=== PATIENT | female | born 1975 | race Caucasian/White ===

== ENCOUNTER 2022-04-28 12:31 | Emergency (ER) | payer OTHER ==
[2022-04-28] MEDS ORDERED: HYDROCODONE/APAP 5/325 MG TAB ONE (13:52)
[2022-04-28] MEDS ORDERED: IBUPROFEN 400 MG TAB ONE (13:52)
[2022-04-28 14:35] LABS: Urine Blood Negative (Negative); Urine Glucose Negative (Negative); Urine Protein Negative (Negative); Urine Specific Gravity 1.025 (1.005-1.030)
[2022-04-28 14:56] LABS: Absolute Lymphocytes (CBC) 4.1 K/uL (0.7-4.9); Hematocrit 33.4 % (36.0-45.0); Lymphocytes % 61.1 % (15.3-44.8); MCV 81.5 fL (80-100); MPV 7.1 fL (7.6-11.3); RBC Red Blood Cell Count 4.09 M/uL (3.86-4.86)
[2022-04-28] MEDS ORDERED: ONDANSETRON 4 MG/2 ML VIAL ONE (14:56)
[2022-04-28] MEDS ORDERED: KETOROLAC 30 MG/ML INJ ONE (14:56)
[2022-04-28] MEDS ORDERED: NA CHLORIDE 0.9% 1,000 ML ONE (14:56)
[2022-04-28] MEDS ORDERED: MORPHINE 4 MG/ML SYR ONE (14:56)
[2022-04-28 15:16] LABS: Albumin 2.1 g/dL (3.4-5.0); Bilirubin Total 0.2 mg/dL (0.2-1.0); Magnesium 1.9 mg/dL (1.8-2.4); Urine Bacteria <20 /HPF (<20); Urine RBC <5 /HPF (None Seen)
--- NOTE | 2022-04-28 17:10 | ER ---
Nurse's Notes [facility] Name: Dayana Royal Age: 46 yrs Sex: Female : 1975 Arrival Date: 04/28/2022 Time: 12:34 Bed 12 Private MD: Venkat Abreu Diagnosis: Kidney stones;Acute febrile illness;Abnormal laboratory test result Presentation: 04/28 12:42 Chief complaint: Patient states: Pt reports she was seen at [facility] yesterday kb3 for several ongoing complaints and discharged with dx kidney stones. Pt reports she received a call from the [facility] stating the her "blood smear is abnormal" so she came in today to get checked out again. Pt reports intermittent fever x1 months, kidney stones, anxiety, and :sick for a long time." Pt is tearful and states "I feel like I have cancer.". Coronavirus screen: Vaccine status: Patient reports receiving the 2nd dose of the covid vaccine. Client denies travel out of the [place] in the last 14 days. At this time, the client does not indicate any symptoms associated with coronavirus-19. Ebola Screen: Patient negative for fever greater than or equal to 101.5 degrees Fahrenheit, and additional compatible Ebola Virus Disease symptoms Patient denies exposure to infectious person. Patient denies travel to an Ebola-affected area in the 21 days before illness onset. No symptoms or risks identified at this time. Initial Sepsis Screen: Does the patient meet any 2 criteria? No. Patient's initial sepsis screen is negative. Does the patient have a suspected source of infection? No. Patient's initial sepsis screen is negative. Risk Assessment: Do you want to hurt yourself or someone else? Patient reports no desire to harm self or others. Onset of symptoms is unknown. 12:42 Method Of Arrival: Ambulatory kb3 12:42 Acuity: BING 3 kb3 Triage Assessment: 12:47 General: Appears comfortable, Behavior is anxious. Pain: Denies pain. 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 - Social history:: Smoking status: Reported history of juuling and/or vaping. Patient/guardian denies using alcohol, street drugs. Screenin:22 Abuse screen: Denies threats or abuse. Denies injuries from another. Nutritional iw screening: No deficits noted. Tuberculosis screening: No symptoms or risk factors identified. Fall Risk IV access (20 points). Assessment: 15:00 General: Appears in no apparent distress. Behavior is calm, cooperative. Pain: iw Complains of pain in left low back and left mid back. Neuro: Level of Consciousness is awake, alert, obeys commands, Oriented to person, place, time, situation, Moves all extremities. Full function. Cardiovascular: Patient's skin is warm and dry. Respiratory: Respiratory effort is even, unlabored, Respiratory pattern is regular. GI: Reports nausea, vomiting. : Reports pain in left flank(s). Derm: Skin is intact, is healthy with good turgor. Vital Signs: 12:42 BP 123 / 83; Pulse 88; Resp 16; Temp 98.2; Pulse Ox 100% ; Weight 78.93 kg; Height 5 kb3 ft. 6 in. (167.64 cm); Pain 7/10; 12:42 Body Mass Index 28.08 (78.93 kg, 167.64 cm) kb3 ED Course: 12:34 Patient arrived in ED. as 12:34 None, None is Private Physician. as 12:45 Venkat Abreu MD is Private Physician. am2 12:47 Triage completed. kb3 12:47 Arm band placed on left wrist. kb3 13:34 Lottie Gonzales, RN is Primary Nurse. iw 13:34 Nivia Mascorro MD is Attending Physician. sd2 14:15 Inserted saline lock: 20 gauge in right antecubital area, using aseptic technique. iw Blood collected. 14:35 Procalcitonin Sent. iw 14:35 Flu Sent. iw 14:35 SARS-COV-2 RT PCR (Document "Date of Onset" if Symptomatic) Sent. iw 14:35 Urine Microscopic Only Sent. iw 14:35 Magnesium Sent. iw 14:35 CMP Sent. iw 14:35 CBC with Diff Sent. iw 15:00 Patient has correct armband on for positive identification. iw 17:08 Venkat Abreu MD is Referral Physician. sd2 17:28 No provider procedures requiring assistance completed. IV discontinued, intact, iw bleeding controlled, No redness/swelling at site. Pressure dressing applied. Administered Medications: 15:06 Drug: NS 0.9% 1000 ml Route: IV; Rate: 1000 ml; Site: right antecubital; iw 16:06 Follow up: IV Status: Completed infusion iw 15:06 Drug: Ketorolac 15 mg Route: IVP; Site: right antecubital; iw 16:00 Follow up: Response: No adverse reaction; Pain is decreased iw 15:06 Drug: morphine 4 mg Route: IVP; Infused Over: 4 mins; Site: right antecubital; iw 15:40 Follow up: Response: No adverse reaction; Pain is decreased iw 15:06 Drug: Zofran (Ondansetron) 4 mg Route: IVP; Site: right antecubital; iw 15:30 Follow up: Response: No adverse reaction iw Medication: 15:00 VIS not applicable for this client. iw Outcome: 17:09 Discharge ordered by . [email or web address] 17:28 Discharged to home ambulatory, with family. iw 17:28 Condition: good 17:28 Discharge instructions given to patient, Instructed on discharge instructions, follow up and referral plans. Demonstrated understanding of instructions, follow-up care. 17:29 Patient left the ED. iw Signatures: Penelope Del Rio Irene, RN RN iw Yumiko Turner Stephanie, MD MD sd2 Chandni Coyle RN RN kb3 Corrections: (The following items were deleted from the chart) 12:48 12:42 Chief complaint: Patient states: Pt reports she was seen at [facility] kb3 yesterday for several ongoing complaints and discharged with dx kidney stones. Pt reports she received a call from the [facility] stating the her "blood smear is abnormal" so she came in today to get checked out again. Pt reports intermittent fever x1 months, kidney stones, anxiety, and :sick for a long time." kb3
--- NOTE | 2022-04-28 17:11 | EDPHYS ---
Physician Documentation [facility] Name: Dayana Royal Age: 46 yrs Sex: Female : 1975 Arrival Date: 04/28/2022 Time: 12:34 Bed 12 Private MD: Venkat Abreu ED Physician Nivia Mascorro HPI: 04/28 16:59 This 46 yrs old Female presents to ER via Ambulatory with complaints of Abnormal Lab sd2 Results. 16:59 46-year-old female presents with chief complaint of abnormal lab results. She reports sd2 that she was seen at [facility] ER yesterday and had labs drawn and was called by her primary care doctor today with a report of an abnormal blood smear and an issue with her lymphocytes. She was told to follow-up and have repeat testing done and decided to come to the ER for further evaluation. She has had intermittent fevers for the past month in addition to nausea, vomiting, malaise and was diagnosed with a small kidney stone yesterday that she was told she should be able to pass on her own. She does have a prior history of kidney stones. She has not followed up with a primary care doctor as of yet since the symptoms started due to recently relocating to the area. However, she does have a plan to follow-up with a specific doctor since she has moved here to live with her son and she will be seeing his same physician. She reports this is a physician that followed up on her lab results and called her. She states they also have a plan in place to call on Saturday to schedule follow-up with hematology.. 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 - Social history:: Smoking status: Reported history of juuling and/or vaping. Patient/guardian denies using alcohol, street drugs. ROS: 17:04 Constitutional: Positive for chills, fatigue, fever, malaise. sd2 17:04 Cardiovascular: Negative for chest pain, orthopnea, palpitations. 17:04 Respiratory: Negative for cough, shortness of breath, wheezing. 17:04 Abdomen/GI: Positive for nausea and vomiting, Negative for constipation, hematemesis, rectal bleeding. 17:04 : Positive for urinary symptoms. 17:04 MS/extremity: Negative for injury or acute deformity, abrasion, paresthesias. 17:04 Skin: Negative for abrasions, laceration(s), rash. 17:04 Neuro: Positive for weakness, Negative for numbness, tingling. Exam: 17:04 Constitutional: This is a well developed, well nourished patient who is awake, alert, sd2 and in no acute distress. Head/Face: Normocephalic, atraumatic. Chest/axilla: Normal chest wall appearance and motion. Nontender with no deformity. Cardiovascular: Regular rate and rhythm with a normal S1 and S2. No gallops, murmurs, or rubs. 2+ distal pulses. Respiratory: Lungs have equal breath sounds bilaterally, clear to auscultation and percussion. No rales, rhonchi or wheezes noted. No increased work of breathing, no retractions or nasal flaring. Abdomen/GI: Soft, non-tender, with normal bowel sounds. No guarding or rebound. No evidence of tenderness throughout. Back: No spinal tenderness. L sided CVA tenderness present. FROM intact. Skin: Warm, dry with normal turgor. Normal color with no rashes, no lesions, and no evidence of cellulitis. MS/ Extremity: Pulses equal, no cyanosis. Neurovascular intact. Full, normal range of motion. Ambulatory without difficulty. Psych: Awake, alert, with orientation to person, place and time. Behavior, mood, and affect are within normal limits. Vital Signs: 12:42 BP 123 / 83; Pulse 88; Resp 16; Temp 98.2; Pulse Ox 100% ; Weight 78.93 kg; Height 5 kb3 ft. 6 in. (167.64 cm); Pain 7/10; 12:42 Body Mass Index 28.08 (78.93 kg, 167.64 cm) kb3 MDM: 13:34 Patient medically screened. sd2 17:04 Differential Diagnosis Dehydration, electrolyte abnormality, UTI, PNA, anemia among sd2 others. Data reviewed: vital signs, nurses notes, lab test result(s), EKG. Counseling: I had a detailed discussion with the patient and/or guardian regarding: the historical points, exam findings, and any diagnostic results supporting the discharge/admit diagnosis, lab results, the need for outpatient follow up, to return to the emergency department if symptoms worsen or persist or if there are any questions or concerns that arise at home. Medical screen evaluation completed. EMTALA emergency medical condition absent. ED course: Labs reviewed. Labs grossly WNCL. Procal not consistent with bacterial infection. UA not consistent with infected stone. Pain improved and tolerable after treatment in ED. VSS. Lymphocytes are elevated on CBC but this can be followed up outpatient. Pt advised of all results and need for continuance of plan for follow up with PCP and hematology as well as urology if kidney stone is not passing. Pt comfortable with plan for discharge and outpatient follow up and verbalizes understanding of strict return precautions. . 04/28 13:47 Order name: CBC with Diff sd2 04/28 13:47 Order name: CMP; Complete Time: 15:55 sd2 04/28 13:47 Order name: Magnesium; Complete Time: 15:55 sd2 04/28 13:47 Order name: Urine Microscopic Only; Complete Time: 15:55 sd2 04/28 13:47 Order name: SARS-COV-2 RT PCR (Document "Date of Onset" if Symptomatic); Complete Time: sd2 15:55 04/28 13:47 Order name: Flu; Complete Time: 16:46 sd2 04/28 13:47 Order name: Urine Dipstick-Ancillary (obtain specimen); Complete Time: 14:35 sd2 04/28 13:47 Order name: Procalcitonin; Complete Time: 16:46 sd2 04/28 14:35 Order name: Urine Dipstick-Ancillary; Complete Time: 14:45 EDMS Administered Medications: 15:06 Drug: NS 0.9% 1000 ml Route: IV; Rate: 1000 ml; Site: right antecubital; iw 16:06 Follow up: IV Status: Completed infusion iw 15:06 Drug: Ketorolac 15 mg Route: IVP; Site: right antecubital; iw 16:00 Follow up: Response: No adverse reaction; Pain is decreased iw 15:06 Drug: morphine 4 mg Route: IVP; Infused Over: 4 mins; Site: right antecubital; iw 15:40 Follow up: Response: No adverse reaction; Pain is decreased iw 15: Drug: Zofran (Ondansetron) 4 mg Route: IVP; Site: right antecubital; iw 15:30 Follow up: Response: No adverse reaction iw Disposition: 17:11 Chart complete. sd2 Disposition Summary: 04/28/22 17:09 Discharge Ordered Location: Home sd2 Problem: an ongoing problem sd2 Symptoms: have improved sd2 Condition: Stable sd2 Diagnosis - Kidney stones sd2 - Acute febrile illness sd2 - Abnormal laboratory test result sd2 Followup: sd2 - With: Venkat Abreu MD - When: 2 - 3 days - Reason: Recheck today's complaints, Continuance of care, Re-evaluation by your physician Followup: sd2 - With: Emergency Department - When: As needed - Reason: Discharge Instructions: - Discharge Summary Sheet sd2 - Fever, Adult sd2 - Kidney Stones sd2 Forms: - Medication Reconciliation Form sd2 - Thank You Letter sd2 - Antibiotic Education sd2 - Prescription Opioid Use sd2 Signatures: Dispatcher [employer] Lottie Núñez RN RN iw Nivia Mascorro MD MD sd2 Chandni Coyle RN RN kb3
[2022-04-28 17:46] LABS: Blood Morphology Comment NOT SEEN (NOT SEEN); Platelet Estimate ADEQ
[2022-04-28 18:43] VITALS: BP 123/83; TEMP 98.2; O2SAT 100
== END 2022-04-28 17:29 | disposition home or self-care (01) ==
LOC: ER 12:31
DX: N20.0 Calculus of kidney (principal); R50.9 Fever, unspecified; R53.1 Weakness; Z20.822 Contact with and (suspected) exposure to COVID-19
CPT/HCPCS: 85025; 36415; 83735; 80053; 84145; 87804 ×2; U0003; J7030; J2405; 81003; 81015; 96361; 96374; 96375; 99283